=== PATIENT | male | born 1980 | race Caucasian/White ===

== ENCOUNTER 2021-01-31 13:05 | Emergency (ER) | payer OTHER ==
--- NOTE | 2021-01-31 14:10 | ED ---
Male Urogenital HPI - General Source: patient, RN notes reviewed Mode of arrival: ambulatory Limitations: no limitations <Lobo Timmons - Last Filed: 01/31/21 14:13> <Rachael Fischer - Last Filed: 01/31/21 21:30> - General Stated complaint: Male Time Seen by Provider: 01/31/21 14:00 - History of Present Illness Initial comments: 40-year-old male presents emergency Department chief complaint of abdominal pain, testicular, dysuria. Patient states this has been going on for 3 weeks. Patient was seen at another emergency department over a week ago states that they told him that was nothing going on states symptoms are getting worse. Patient states that it hurts to urinate states that he had a chest pain is as burning, red. Patient states she's had back pain, flank pain. Patient has been on Bactrim and was on a Z-Indra prior to this. (Lobo Timmons) I evaluated the patient myself 40-year-old male who presents with chief complaint of lower abdominal pain, rectal pain, testicular discomfort which has been going on for 3 weeks. Patient was seen at a emergency department in [place] for his complaints. States they ran a urinalysis which was normal. He also says primary care doctor who completed laboratory studies and STI checking. He states he is in a monogamous relationship with his . He does admit to dysuria. Denies hematuria or increased frequency of voiding. No issues with his bowel habits to include diarrhea, constipation, black or bloody stools. No fevers or chills. Denies any penile drainage. Does have a lesion on the tip of his penis which developed after he started Bactrim and azithromycin through his primary care office. He states that they were treating a possible urinary tract infection. He is also been putting Lotrimin cream to the site. States that it is just getting worse. Denies rectal bleeding. No fevers or chills. No other alleviating, precipitating or modifying factors (Rachael Fischer) - Related Data Home Medications Medication Instructions Recorded Confirmed Cholesterol Med(Unknown) 1 tab PO DAILY 01/31/21 01/31/21 Cyanocobalamin (Vitamin B-12) 1,000 mcg PO DAILY 01/31/21 01/31/21 [Vitamin B-12] Multivitamins, Thera [Multivitamin 1 tab PO DAILY 01/31/21 01/31/21 (formulary)] Solriamfetol HCl [Sunosi] 150 mg PO DAILY 01/31/21 01/31/21 Sulfamethox-Tmp 800-160Mg [Bactrim 1 tab PO BID 01/31/21 01/31/21 DS 800-160 mg] Turmeric Root Extract [Turmeric] 500 mg PO DAILY 01/31/21 01/31/21 Ubidecarenone [Co Q-10] 100 mg PO DAILY 01/31/21 01/31/21 Vitamin B Complex 1 cap PO DAILY 01/31/21 01/31/21 buprenorphine HCL [Subutex] 8 mg SUBLINGUAL TID 01/31/21 01/31/21 Allergies Allergy/AdvReac Type Severity Reaction Status Date / Time No Known Allergies Allergy Verified 01/31/21 18:30 Review of Systems ROS Other: All systems not noted in ROS Statement are negative. <Lobo Timmons - Last Filed: 01/31/21 14:13> ROS Other: All systems not noted in ROS Statement are negative. <Rachael Fischer - Last Filed: 01/31/21 21:30> ROS Statement: Those systems with pertinent positive or pertinent negative responses have been documented in the HPI. Course Vital Signs 01/31/21 01/31/21 01/31/21 14:08 18:12 19:59 Temperature 98.0 F 98.2 F Pulse Rate 72 71 68 Respiratory 20 18 18 Rate Blood Pressure 135/91 127/89 105/79 O2 Sat by Pulse 98 97 96 Oximetry Medical Decision Making - Lab Data Result diagrams: 01/31/21 17:47 01/31/21 17:47 <Rachael Fischer - Last Filed: 01/31/21 21:30> - Medical Decision Making Upon arrival patient is placed in room 20. A thorough history and physical exam is performed. IV is established. Laboratory studies were conducted. Patient provided a urine sample. Testicular ultrasound, CT them and pelvis and chest x- ray all performed. Laboratory studies are reviewed and are within normal limits. Scrotal ultrasound demonstrates a left-sided hydrocele. Chest x-ray unremarkable. CT of abdomen and pelvis demonstrates no acute findings. Instructed the patient wear tightfitting briefs for his varicocele. I did discuss treatment with pain medications however the patient refused stating he is a previous active addict. Instructed him that the lesion on his penis looks like a drug eruption and so he is to stop taking the Bactrim. I recommended placing triple antibiotic cream to the site. Stop using Lotrimin. Patient is to follow-up with his primary care doctor for colonoscopy. 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 Take Motrin Tylenol fo r pain. Return to the emergency room for any worsening symptoms. Patient was discharged home in stable condition (Rachael Fischer) - Lab Data Lab Results 01/31/21 01/31/21 01/31/21 Range/Units 17:01 17:47 17:47 WBC 8.5 (3.8-10.6) k/uL RBC 4.91 (4.30-5.90) m/uL Hgb 16.7 (13.0-17.5) gm/dL Hct 46.3 (39.0-53.0) % MCV 94.3 (80.0-100.0) fL MCH 34.0 (25.0-35.0) pg MCHC 36.1 (31.0-37.0) g/dL RDW 12.3 (11.5-15.5) % Plt Count 192 (150-450) k/uL MPV 8.2 Neutrophils % 52 % Lymphocytes % 37 % Monocytes % 6 % Eosinophils % 3 % Basophils % 0 % Neutrophils # 4.4 (1.3-7.7) k/uL Lymphocytes # 3.2 (1.0-4.8) k/uL Monocytes # 0.6 (0-1.0) k/uL Eosinophils # 0.2 (0-0.7) k/uL Basophils # 0.0 (0-0.2) k/uL Sodium 141 (137-145) mmol/L Potassium 4.2 (3.5-5.1) mmol/L Chloride 106 (98-107) mmol/L Carbon Dioxide 25 (22-30) mmol/L Anion Gap 10 mmol/L BUN 14 (9-20) mg/dL Creatinine 0.82 (0.66-1.25) mg/dL Est GFR (CKD-EPI)AfAm >90 (>60 ml/min/1.73 sqM) Est GFR (CKD-EPI)NonAf >90 (>60 ml/min/1.73 sqM) Glucose 90 (74-99) mg/dL Calcium 9.7 (8.4-10.2) mg/dL Total Bilirubin 0.5 (0.2-1.3) mg/dL AST 32 (17-59) U/L ALT 23 (4-49) U/L Alkaline Phosphatase 63 (38-126) U/L Total Protein 7.8 (6.3-8.2) g/dL Albumin 4.7 (3.5-5.0) g/dL Urine Color Yellow Urine Appearance Cloudy (Clear) Urine pH 7.5 (5.0-8.0) Ur Specific Newcomb 1.021 (1.001-1.035) Urine Protein Negative (Negative) Urine Glucose (UA) Negative (Negative) Urine Ketones Negative (Negative) Urine Blood Negative (Negative) Urine Nitrite Negative (Negative) Urine Bilirubin Negative (Negative) Urine Urobilinogen <2.0 (<2.0) mg/dL Ur Leukocyte Esterase Negative (Negative) Amorphous Sediment Few H (None) /hpf Urine Mucus Rare H (None) /hpf Disposition <Lobo Timmons M - Last Filed: 01/31/21 14:13> Is patient prescribed a controlled substance at d/c from ED?: No Time of Disposition: 19:54 <Rachael Fischer - Last Filed: 01/31/21 21:30> Clinical Impression: Penile lesion, Rectal pain Disposition: HOME SELF-CARE Condition: Stable Instructions (If sedation given, give patient instructions): Rectal Pain (ED) Additional Instructions: Please follow up with your PCP in 2-4 days. You should have a colonoscopy for your pain. Place triple antibiotic ointment to the site. Stop taking the Bactrim. Return to the ED for any new or worsening symptoms. Referrals: Nonstaff,Physician [Primary Care Provider] - 1-2 days
--- NOTE | 2021-01-31 15:57 | US ---
EXAMINATION TYPE: US scrotum with doppler. Grayscale and color Doppler Duplex imaging performed of dimitris wagner scrotum. DATE OF EXAM: 01/31/2021 COMPARISON: NONE CLINICAL HISTORY: pain,swelling. No redness. No swelling. Patient states left hurts more than right . EXAM MEASUREMENTS: TESTICLES: Right Testicle: 4.8 x 3.6 x 2.8 cm Left Testicle: 4.9 x 3.3 x 2.6 cm EPIDIDYMIS HEAD: Right Epididymis: 1.2 x 1.4 x 0.8 cm Left Epididymis: 1.0 x 1.0 x 0.7 cm Doppler performed to assess for testicular vascularity; good bilateral color flow and waveforms are s een. There is no evidence of testicular torsion. Presence of hydroceles: no Presence of varicoceles: left IMPRESSION: Left-sided varicocele. Otherwise unremarkable study.
[2021-01-31 17:12] LABS: Amorphous Sediment,Urine Few /hpf; Appearance,Urine Cloudy (Clear); Bilirubin,Urine Negative (Negative); Blood,Urine Negative (Negative); Color,Urine Yellow; Glucose,Urine (UA) Negative (Negative); Ketones,Urine Negative (Negative); Leukocyte Esterase,Urine Negative (Negative); Mucus,Urine Rare /hpf; Nitrite,Urine Negative (Negative); PH, Urine 7.5 (5.0-8.0); Protein,Urine Negative (Negative); Specific Gravity,Urine 1.021 (1.001-1.035); Urobilinogen,Urine <2.0 mg/dL (<2.0)
[2021-01-31 17:54] LABS: Basophils % (A) 0 %; Eosinophils # (A) 0.2 k/uL (0-0.7); Eosinophils % (A) 3 %; HCT 46.3 % (39.0-53.0); HGB 16.7 gm/dL (13.0-17.5); Lymphocytes # (A) 3.2 k/uL (1.0-4.8); Lymphocytes % (A) 37 %; MCHC 36.1 g/dL (31.0-37.0); MCV 94.3 fL (80.0-100.0); Mean Platelet Volume 8.2; Monocytes # (A) 0.6 k/uL (0-1.0); Monocytes % (A) 6 %; Neutrophils # (A) 4.4 k/uL (1.3-7.7); Neutrophils % (A) 52 %; Platelet Count 192 k/uL (150-450); RBC 4.91 m/uL (4.30-5.90); RDW 12.3 % (11.5-15.5); WBC 8.5 k/uL (3.8-10.6)
[2021-01-31 18:03] LABS: ALT 23 U/L (4-49); AST 32 U/L (17-59); African American GFR (CKD) >90 (>60 ml/min/1.73 sqM); Albumin 4.7 g/dL (3.5-5.0); Alkaline Phosphatase 63 U/L (38-126); Anion Gap 10 mmol/L; Blood Urea Nitrogen 14 mg/dL (9-20); Calcium 9.7 mg/dL (8.4-10.2); Carbon Dioxide 25 mmol/L (22-30); Chloride 106 mmol/L (98-107); Glucose 90 mg/dL (74-99); Non-African American GFR(CKD) >90 (>60 ml/min/1.73 sqM); Potassium 4.2 mmol/L (3.5-5.1); Sodium 141 mmol/L (137-145); Total Bilirubin 0.5 mg/dL (0.2-1.3); Total Protein 7.8 g/dL (6.3-8.2)
[2021-01-31 18:27] VITALS: RESP 18
--- NOTE | 2021-01-31 18:40 | XR ---
EXAMINATION TYPE: XR chest 2V DATE OF EXAM: 01/31/2021 CLINICAL HISTORY: abdominal pain. TECHNIQUE: Frontal and lateral view of the chest. COMPARISON: None FINDINGS: The cardiomediastinal silhouette is within normal limits for size. Pulmonary vasculature i s normal. There is no focal air space opacity. No pleural effusion. No pneumothorax seen. No acute d isplaced osseous fracture. IMPRESSION: No acute cardiopulmonary process.
--- NOTE | 2021-01-31 19:36 | CT ---
EXAMINATION TYPE: CT abdomen pelvis w con DATE OF EXAM: 01/31/2021 COMPARISON: None HISTORY: Testicular and lower pelvic pain. CT DLP: 1554.4 mGycm Automated exposure control for dose reduction was used. TECHNIQUE: Helical acquisition of images was performed from the lung bases through the pelvis. CONTRAST: Performed without Oral Contrast and with IV Contrast, patient injected with 100ml mL of Isovue 300. FINDINGS: LUNG BASES: Normal. LIVER: Normal. BILIARY SYSTEM: Gallbladder is contracted. PANCREAS: Normal. SPLEEN: Normal. ADRENALS: Normal. KIDNEYS: Normal. BOWEL: No obstruction or thickening. Normal appendix. Colonic diverticulosis. No acute diverticuliti s. PERITONEUM: No pneumoperitoneum. No free fluid. LYMPH NODES: No lymphadenopathy. PELVIS: Normal. VASCULATURE: No abdominal aortic aneurysm. MUSCULOSKELETAL: No acute osseous normality. IMPRESSION: No acute abdominopelvic process.
[2021-01-31 20:00] VITALS: BP 105/79; PULSE 68; TEMP 98.2
== END 2021-01-31 19:59 | disposition home or self-care (01) ==
LOC: EC 13:05
DX: N48.89 Other specified disorders of penis (principal); K62.89 Other specified diseases of anus and rectum
CPT/HCPCS: 99284; 36415; 80053; 85025; 81001; 71046; 93975; 76870; 74177; Q9967